=== PATIENT | female | born 1985 | race Caucasian/White ===

== ENCOUNTER 2023-11-20 13:10 | Emergency (ER) | payer SELFPAY ==
[2023-11-20 13:23] VITALS: BP 122/63; PULSE 89; TEMP 36.7; O2SAT 98; BMI 28.0
--- NOTE | 2023-11-20 14:32 | ED_ITS ---
HPI HPI - General Adult General Chief complaint: GI Bleed Stated complaint: RECTAL BLEEDING Time Seen by Provider: 11/20/23 14:09 Source: patient Mode of arrival: walk-in Limitations: no limitations History of Present Illness HPI narrative: Patient is a 38-year-old female who presents to the emergency department with concern for hemorrhoids and rectal bleeding. She states she has had int ermittent issues with hemorrhoids in the past. She has also had issues with constipation. She states that she has been using an increase in fiber to treat her constipation but as she continues to have an increase in bowel movements and the constipation is resolving, she feels as though the hemorrhoid is more irritated and she is noting blood with wiping. She states last night she noted a small blood clot in the toilet and this concerned her. She has had no fevers, chills, nausea, vomiting, abdominal pain. She is not concerned for . Related Data Previous Rx's ?Medication ?Instructions ?Recorded hydrocortisone 1 %-pramoxine 1 % 1 applic GA TID PRN hemorrhoids 11/20/23 rectal foam (Proctofoam HC) #10 grams Allergies Allergy/AdvReac Type Severity Reaction Status Date / Time Penicillins Allergy Severe Anaphylaxis Verified 11/20/23 13:23 Opioid HPI Opioid Management Most Recent Opioid Data: No Data to Display Review of Systems ROS Constitutional Denies: fever or chills Ears, nose, mouth, and throat Denies: throat pain or nasal congestion Respiratory Denies: shortness of breath Gastrointestinal Reports: constipation and rectal pain; Denies: abdominal pain, nausea or vomiting Musculoskeletal Denies: back pain Integumentary/Breast Denies: rash Hematologic/Lymphatic Denies: easy bruising or easy bleeding Exam Narrative Exam Narrative: Gen.: Awake, alert, in no distress Head: Normocephalic, atraumatic ENT: Moist mucous membranes Respiratory: No respiratory distress Gastrointestinal: Abdomen is soft, nondistended and nontender to palpation Rectal: Rectal exam performed with [place] RN at bedside throughout the duration of the exam. Patient with 2 small hemorrhoids, 1 hemorrhoid is more swollen, with no evidence of thrombosis. No active rectal bleeding. No purulence or abscess noted. Extremities: Moves extremities equally Psych: Normal mood and affect Neuro: No focal neuro deficit Skin: Warm, dry, intact Constitutional Vital Signs, click to edit/add: Last Vital Signs Temp 98.1 F 11/20/23 13:23 Pulse 89 11/20/23 13:23 Resp 15 11/20/23 13:23 BP 122/63 11/20/23 13:23 Pulse Ox 98 11/20/23 13:23 O2 Del Method Room Air 11/20/23 13:23 Course Vital Signs Vital signs: Vital Signs Temperature 98.1 F 11/20/23 13:23 Pulse Rate 89 11/20/23 13:23 Respiratory Rate 15 11/20/23 13:23 Blood Pressure 122/63 11/20/23 13:23 Pulse Oximetry 98 11/20/23 13:23 Oxygen Delivery Method Room Air 11/20/23 13:23 Temperature 98.1 F 11/20/23 13:23 Pulse Rate 89 11/20/23 13:23 Respiratory Rate 15 11/20/23 13:23 Blood Pressure 122/63 11/20/23 13:23 Pulse Oximetry 98 11/20/23 13:23 Oxygen Delivery Method Room Air 11/20/23 13:23 Medical Decision Making MDM Narrative Medical decision making narrative: Exam is consistent with small hemorrhoids, no evidence of thrombosis at this time. Patient will be treated with topical Proctofoam. Referred to general surgery. She is hemodynamically stable with no complaints of abdominal pain or vomiting. Follow-up with PCP and general surgery and return to the ER if symptoms change or worsen Medical Records Medical records reviewed: Yes I reviewed the patient's medical records Discharge Plan Discharge Stand Alone Forms: Portal Instructions Chief Complaint: GI Bleed Clinical Impression: Rectal bleed, Hemorrhoids Patient Disposition: Home, Self-Care Time of Disposition Decision: 14:30 Condition: Good Prescriptions / Home Meds: New Proctofoam HC 1-1 % foam 1 applic GA TID PRN (Reason: hemorrhoids) Qty: 10 0RF Print Language: [place] Instructions: Rectal Bleeding (ED) Referrals: Franklin Doyle DO [Physician] - As needed Physician,Non-Staff, MD [Primary Care Provider] - 1 week
== END 2023-11-20 14:41 | disposition home or self-care (01) ==
PROVIDERS: Emergency Provider Emergency Medicine
DX: K62.5 Hemorrhage of anus and rectum (principal); K64.9 Unspecified hemorrhoids
CPT/HCPCS: 99283